=== PATIENT | female | born 1960 ===

== ENCOUNTER 2022-06-09 07:30 | Outpatient (CLI) | payer OTHER, SELFPAY | END 2022-06-09 07:31 | disposition home or self-care (01) | LOC: ANHBWCAUD 07:31 | DX: H61.301 Acquired stenosis of right external ear canal, unspecified (principal); H90.A11 Conductive hearing loss, unilateral, right ear with restricted hearing on the contralateral side; H90.A22 Sensorineural hearing loss, unilateral, left ear, with restricted hearing on the contralateral side | CPT/HCPCS: 92557; 92567 ==